=== PATIENT | male | born 1990 | race Hispanic/Latino ===

== ENCOUNTER → 2023-10-22 | Emergency (ER) | payer SELFPAY ==
[~2023-10-22] MED LIST: CEPHALEXIN 250 MG CAP ONE; IBUPROFEN 400 MG TAB ONE; NA CHLORIDE 0.9% 1,000 ML ONE; PROMETHAZINE 25 MG TABLET ONE; metroNIDAZOLE 500 MG TABLET ONE
[2023-10-22 04:18] LABS: Lymphocytes % 27.6 % (15.3-44.8); MCV 90.3 fL (80-100); MPV 7.1 fL (7.6-11.3); Platelets 401 thou/uL (152-406); RBC Red Blood Cell Count 4.65 M/uL (4.33-5.43)
[2023-10-22 04:58] LABS: Albumin 3.7 g/dL (3.4-5.0); Bilirubin Total 0.2 mg/dL (0.2-1.0); Potassium 4.1 mEq/L (3.5-5.1); Protein, Total 8.3 g/dL (6.4-8.2)
[2023-10-22 05:14] LABS: Specific Gravity 1.028 (1.005-1.030); Urine Bacteria None Seen /HPF (<20); Urine Bilirubin NEGATIVE (Negative); Urine Blood 3+ (OVER) (Negative); Urine Clarity Turbid (Clear); Urine Color Light-Yellow (Yellow); Urine Glucose 3+ (Negative); Urine Protein TRACE (Negative); Urine RBC >50 /HPF (None Seen); Urine Urobilinogen 1+ (Normal); Urine pH 6.5 (5.0-7.0)
--- NOTE | 2023-10-22 06:44 | ER ---
Nurse's Notes [facility] Name: Timo Waldron Age: 33 yrs Sex: Male : 1990 Arrival Date: 10/22/2023 Time: 02:56 Bed 11 Private MD: Diagnosis: Diverticulitis of large intestine without perforation or abscess without bleeding;Sigmoid diverticulitis without perforation or abscess Presentation: 10/22 03:48 Chief complaint: Patient states: I'm having some right sided side pain that just vc1 started tonight. It was like a sharp pressure that took my breath away. I have been having some lower stomach pain for the last 5 days. Coronavirus screen: Vaccine status: Patient reports being unvaccinated. Client denies travel out of the [place] in the last 14 days. At this time, the client does not indicate any symptoms associated with coronavirus-19. Ebola Screen: Patient negative for fever greater than or equal to 101.5 degrees Fahrenheit, and additional compatible Ebola Virus Disease symptoms Patient denies exposure to infectious person. Patient denies travel to an Ebola-affected area in the 21 days before illness onset. No symptoms or risks identified at this time. Initial Sepsis Screen: Does the patient meet any 2 criteria? No. Patient's initial sepsis screen is negative. Does the patient have a suspected source of infection? No. Patient's initial sepsis screen is negative. Risk Assessment: Do you want to hurt yourself or someone else? Patient reports no desire to harm self or others. Onset of symptoms was October 22, 2023. 03:48 Method Of Arrival: Ambulatory vc1 03:48 Acuity: BIENVENIDO 3 vc1 Triage Assessment: 03:58 General:. vc1 04:00 General: Appears in no apparent distress. uncomfortable, Behavior is calm, cooperative, vc1 appropriate for age. Pain: Complains of pain in posterior aspect of right lateral abdomen Pain does not radiate. Pain currently is 5 out of 10 on a pain scale. : Reports pain in right flank(s). Historical: - Allergies: 03:57 No Known Allergies; vc1 - Home Meds: 03:57 None [Active]; vc1 - PMHx: 03:57 None; vc1 - PSHx: 03:57 None; vc1 - Immunization history:: Client reports having NOT received the Covid vaccine. Flu vaccine is not up to date. - Social history:: Smoking status: Patient/guardian denies using tobacco. - Family history:: not pertinent. Screenin:58 [facility] ED Fall Risk Assessment (Adult) History of falling in the last 3 months, vc1 including since admission No falls in past 3 months (0 pts) Confusion or Disorientation No (0 pts) Intoxicated or Sedated No (0 pts) Impaired Gait No (0 pts) Mobility Assist Device Used No (0 pt) Altered Elimination No (0 pt) Score/Fall Risk Level 0 - 2 = Low Risk Oriented to surroundings, Maintained a safe environment, Educated pt \T\ family on fall prevention, incl call for assistance when getting out of bed, Assessed \T\ reinforced patient's understanding of fall precautions. Abuse screen: Denies threats or abuse. Nutritional screening: No deficits noted. Tuberculosis screening: No symptoms or risk factors identified. Assessment: 04:44 Reassessment: Patient and/or family updated on plan of care and expected duration. Pain vc1 level reassessed. Patient is alert, oriented x 3, equal unlabored respirations, skin warm/dry/pink. Patient states feeling better. Patient states symptoms have improved. 07:12 Reassessment: Patient and/or family updated on plan of care and expected duration. Pain vc1 level reassessed. Patient is alert, oriented x 3, equal unlabored respirations, skin warm/dry/pink. Patient states feeling better. Patient states symptoms have improved. Vital Signs: 03:48 BP 153 / 93; Pulse 113; Resp 18; Temp 98.5; Pulse Ox 98% ; Weight 81.65 kg; Height 5 vc1 ft. 6 in. ; Pain 0/10; 04:44 BP 129 / 68; Pulse 108; Resp 18; Pulse Ox 97% ; vc1 07:09 BP 128 / 64; Pulse 98; Resp 18; Pulse Ox 98% ; vc1 03:48 Body Mass Index 29.05 (81.65 kg, 167.64 cm) vc1 03:48 Pain Scale: Adult vc1 ED Course: 03:00 Patient arrived in ED. gm2 03:22 Albert Davies MD is Attending Physician. sp4 03:29 Radiology exam delayed due to lab results not completed at this time. (BUN/Creatinine) eh4 IV insertion attempt and/or patient not having appropriate IV at this time. 03:52 Triage completed. vc1 03:58 Arm band placed on right wrist. vc1 06:05 CT Abd/Pelvis - IV Contrast Only In Process Unspecified. EDMS 06:43 Michael Pearson MD is Referral Physician. sp4 07:14 No provider procedures requiring assistance completed. IV discontinued, intact, vc1 bleeding controlled, No redness/swelling at site. Pressure dressing applied. Administered Medications: 04:18 Drug: NS 0.9% IV 1000 ml IV at 1 bolus Per protocol; 1000 mL bolus Route: IV; Rate: 1 vc1 bolus; Site: right antecubital; 07:07 Drug: metroNIDAZOLE PO 500 mg PO once Route: PO; vc1 07:09 Follow up: Response: Medication administered at discharge. vc1 07:07 Drug: Cephalexin PO 500 mg PO once Route: PO; vc1 07:09 Follow up: Response: Medication administered at discharge. vc1 07:07 Drug: Ibuprofen PO 800 mg PO once Route: PO; vc1 07:08 Follow up: Response: Medication administered at discharge. vc1 07:07 Drug: Promethazine PO 25 mg PO once Route: PO; vc1 07:08 Follow up: Response: Medication administered at discharge. vc1 Medication: 07:14 VIS not applicable for this client. vc1 Outcome: 06:44 Discharge ordered by . sp4 07:14 Discharged to home ambulatory, vc1 07:14 Condition: good 07:14 Discharge instructions given to patient, Instructed on discharge instructions, follow up and referral plans. medication usage, Demonstrated understanding of instructions, follow-up care, medications, Prescriptions given X 4, 07:14 Patient left the ED. vc1 Signatures: Dispatcher [employer] EDNM Irene Guzman RN RN vc1 Yogi Borges 4 Albert Davies MD MD sp4 Trisha Onofre 2
--- NOTE | 2023-10-22 06:44 | EDPHYS ---
Physician Documentation [facility] Name: Timo Waldron Age: 33 yrs Sex: Male : 1990 Arrival Date: 10/22/2023 Time: 02:56 Bed 11 Private MD: ED Physician Albert Davies HPI: 10/22 03:22 This 33 yrs old Male presents to ER via Unassigned with complaints of Flank sp4 Pain, side pressure. 06:37 43-year-old male presents with right flank pain in the last 2 hours, also episode of sp4 left lower abdominal pain in the past 2 weeks. Denied fever or vomiting. Historical: - Allergies: 03:57 No Known Allergies; vc1 - Home Meds: 03:57 None [Active]; vc1 - PMHx: 03:57 None; vc1 - PSHx: 03:57 None; vc1 - Immunization history:: Client reports having NOT received the Covid vaccine. Flu vaccine is not up to date. - Social history:: Smoking status: Patient/guardian denies using tobacco. - Family history:: not pertinent. ROS: 06:37 Constitutional: Negative for fever, chills, and weight loss, positive abdominal pain sp4 positive right flank pain. 06:37 All other systems are negative, Exam: 06:37 Constitutional: This is a well developed, well nourished patient who is awake, alert, sp4 and in no acute distress. Head/Face: Normocephalic, atraumatic. Eyes: Pupils equal round and reactive to light, extra-ocular motions intact. Lids and lashes normal. Conjunctiva and sclera are not injected. Cornea within normal limits. Periorbital areas with no swelling, redness, or edema. ENT: Nares patent. No nasal discharge, no septal abnormalities noted. Tympanic membranes are normal and external auditory canals are clear. Oropharynx with no redness, swelling, or masses, exudates, or evidence of obstruction, uvula midline. Mucous membranes moist. Neck: Trachea midline, no thyromegaly or masses palpated, and no cervical lymphadenopathy. Supple, full range of motion without nuchal rigidity, or vertebral point tenderness. Chest/axilla: Normal chest wall appearance and motion. Nontender with no deformity. No lesions are appreciated. Cardiovascular: Regular rate and rhythm with a normal S1 and S2. No gallops, murmurs, or rubs. Normal PMI, no JVD. No pulse deficits. Respiratory: Lungs have equal breath sounds bilaterally, clear to auscultation and percussion. No rales, rhonchi or wheezes noted. No increased work of breathing, no retractions or nasal flaring. Abdomen/GI: Soft, with normal bowel sounds. No distension or tympany. No guarding or rebound. Positive left lower quadrant abdominal tenderness without rebound Back: No spinal tenderness. No costovertebral tenderness. Skin: Warm, dry with normal turgor. Normal color with no rashes, no lesions, and no evidence of cellulitis. MS/ Extremity: Pulses equal, no cyanosis. Neurovascular intact. Full, normal range of motion. Neuro: Awake and alert, GCS 15, oriented to person, place, time, and situation. Cranial nerves II-XII grossly intact. Motor strength 5/5 in all extremities. Sensory grossly intact. Psych: Awake, alert, with orientation to person, place and time. Behavior, mood, and affect are within normal limits Vital Signs: 03:48 BP 153 / 93; Pulse 113; Resp 18; Temp 98.5; Pulse Ox 98% ; Weight 81.65 kg; Height 5 vc1 ft. 6 in. ; Pain 0/10; 04:44 BP 129 / 68; Pulse 108; Resp 18; Pulse Ox 97% ; vc1 07:09 BP 128 / 64; Pulse 98; Resp 18; Pulse Ox 98% ; vc1 03:48 Body Mass Index 29.05 (81.65 kg, 167.64 cm) vc1 03:48 Pain Scale: Adult vc1 MDM: 03:25 Patient medically screened. sp4 06:37 Differential diagnosis: nephrolithiasis, pyelonephritis, UTI, diverticulitis, sp4 pancreatitis. Data reviewed: vital signs, nurses notes, lab test result(s), EKG, radiologic studies, CT scan. Consideration of Admission/Observation Escalation of care including admission/observation considered. ED course: COMPARISON: No relevant prior studies available. FINDINGS: Lung bases: Unremarkable. No mass. No consolidation. ABDOMEN: Liver: Unremarkable. No mass. Gallbladder and bile ducts: Unremarkable. No calcified stones. No ductal dilation. Pancreas: No findings to suggest acute pancreatitis. No mass visualized. No ductal dilation. Spleen: Unremarkable. No splenomegaly. Adrenals: Unremarkable. No mass. Kidneys and ureters: Unremarkable. No solid mass. No hydronephrosis. Stomach and bowel: Focal diverticulitis in the proximal sigmoid colon with adjacent fat stranding. No bowel dilatation or obstruction. No bowel wall thickening. No gastric wall thickening. PELVIS: Appendix: The visualized appendix is normal. No pericecal inflammation to suggest acute appendicitis. Bladder: Unremarkable. No mass. Reproductive: Unremarkable as visualized. ABDOMEN and PELVIS: Intraperitoneal space: No free air or abscess. No significant fluid collection. Bones/joints: No acute fracture. No dislocation. Soft tissues: Unremarkable. Vasculature: Unremarkable. No abdominal aortic aneurysm. Lymph nodes: No pathologically enlarged lymph nodes. IMPRESSION: Focal sigmoid colon diverticulitis. 10/22 03:24 Order name: CBC with Diff; Complete Time: 06:08 sp4 10/22 03:24 Order name: CMP; Complete Time: 06:08 sp4 10/22 03:24 Order name: Lipase; Complete Time: 06:08 sp4 10/22 03:24 Order name: Urinalysis w/ reflexes; Complete Time: 06:08 sp4 10/22 03:24 Order name: CT Abd/Pelvis - IV Contrast Only 4 10/22 03:24 Order name: IV Saline Lock; Complete Time: 04:10 sp4 10/22 03:24 Order name: Labs collected and sent; Complete Time: 04:10 sp4 Administered Medications: 04:18 Drug: NS 0.9% IV 1000 ml IV at 1 bolus Per protocol; 1000 mL bolus Route: IV; Rate: 1 vc1 bolus; Site: right antecubital; 07:07 Drug: metroNIDAZOLE PO 500 mg PO once Route: PO; vc1 07:09 Follow up: Response: Medication administered at discharge. vc1 07:07 Drug: Cephalexin PO 500 mg PO once Route: PO; vc1 07:09 Follow up: Response: Medication administered at discharge. vc1 07:07 Drug: Ibuprofen PO 800 mg PO once Route: PO; vc1 07:08 Follow up: Response: Medication administered at discharge. vc1 07:07 Drug: Promethazine PO 25 mg PO once Route: PO; vc1 07:08 Follow up: Response: Medication administered at discharge. vc1 Disposition Summary: 10/22/23 06:44 Discharge Ordered Notes: Location: Home sp4 Problem: new sp4 Symptoms: have improved sp4 Condition: Stable sp4 Diagnosis - Diverticulitis of large intestine without perforation or abscess without bleeding sp4 - Sigmoid diverticulitis without perforation or abscess sp4 Followup: sp4 - With: Michael Pearson MD - When: 7 - 10 days - Reason: Recheck today's complaints Discharge Instructions: - Discharge Summary Sheet sp4 - Diverticulitis, [id number] sp4 Forms: - Work release form vc1 - Patient Portal Instructions sp4 Prescriptions: - Cephalexin 500 mg Oral Capsule - take 1 capsule ORAL route every 8 hours for 10 days; 30 capsule; Refills: 0, sp4 Product Selection Permitted - Flagyl 500 mg Oral Tablet - take 1 tablet ORAL route every 8 hours for 10 days; 30 tablet; Refills: 0, sp4 Product Selection Permitted - Ibuprofen 800 mg Oral Tablet - take 1 tablet ORAL route every 8 hours As needed take with food; 30 tablet; sp4 Refills: 0, Product Selection Permitted - promethazine 25 mg Oral tablet - take 1 tablet ORAL route every 6 hours As needed; 30 tablet; Refills: 0, sp4 Product Selection Permitted Signatures: Dispatcher [employer] Irene Lambert RN RN vc1 Albert Davies MD MD sp4
[2023-10-22 09:15] VITALS: BP 128/64; TEMP 98.5; O2SAT 98
--- NOTE | 2023-10-22 10:39 | RAD REPORT ---
EXAM DESCRIPTION: CT - Abdomen Pelvis W Contrast - 10/22/2023 6:31 am CLINICAL HISTORY: The patient is 33 years old and is Male; right sided and lower abd pain TECHNIQUE: Axial computed tomography images of the abdomen and pelvis with intravenous contrast. S agittal and coronal reformatted images were created and reviewed. This CT exam was performed using one or more of the following dose reduction techniques: automated exposure control, adjustment of t he mA and/or kV according to patient size, and/or use of iterative reconstruction technique. COMPARISON: No relevant prior studies available. FINDINGS: Lung bases: Unremarkable. No mass. No consolidation. ABDOMEN: Liver: Unremarkable. No mass. Gallbladder and bile ducts: Unremarkable. No calcified stones. No ductal dilation. Pancreas: No findings to suggest acute pancreatitis. No mass visualized. No ductal dilation. Spleen: Unremarkable. No splenomegaly. Adrenals: Unremarkable. No mass. Kidneys and ureters: Unremarkable. No solid mass. No hydronephrosis. Stomach and bowel: Focal diverticulitis in the proximal sigmoid colon with adjacent fat stranding . No bowel dilatation or obstruction. No bowel wall thickening. No gastric wall thickening. PELVIS: Appendix: The visualized appendix is normal. No pericecal inflammation to suggest acute appendici tis. Bladder: Unremarkable. No mass. Reproductive: Unremarkable as visualized. ABDOMEN and PELVIS: Intraperitoneal space: No free air or abscess. No significant fluid collection. Bones/joints: No acute fracture. No dislocation. Soft tissues: Unremarkable. Vasculature: Unremarkable. No abdominal aortic aneurysm. Lymph nodes: No pathologically enlarged lymph nodes. IMPRESSION: Focal sigmoid colon diverticulitis. Electronically signed by: Nina Mesa MD 10/22/2023 06:19 AM STEEL E[employer]OR Due to temporary technical issues with the PACS/Fluency reporting system, reports are being signed by the in house radiologist without review as a courtesy to ensure prompt reporting. The interpreting r adiologist is fully responsible for the content of the report.
== END ==
LOC: ER 02:56
DX: K57.32 Diverticulitis of large intestine without perforation or abscess without bleeding (principal)
CPT/HCPCS: 36415; 74177; 80053; 81001; 83690; 85025; 99284; J7030; Q0169; Q9967